=== PATIENT | male | born 1995 | race Caucasian/White ===

== ENCOUNTER 2017-04-24 15:13 | Emergency (ER) | payer OTHER ==
[2017-04-24 15:38] LABS: WBC (NOT ORDERED) (RFLEX) 0 (0-5)
[2017-04-24 15:57] LABS: ASCORBIC ACID (UR NOT ORDER) NEG (NEG); BILIRUBIN, URINE NEGATIVE (NEG); ER URINALYSIS TAT 0 Hrs 19 Mins; KETONE, URINE NEGATIVE (NEG); LEUKOCYTE ESTERASE(NOT OR NEG (NEG); NITRITE (URINE) NEG (NEG)
[2017-04-24 16:08] LABS: A/G RATIO 1.2 (0.7-1.9); ALBUMIN 4.1 G/DL (3.5-5.0); ALKALINE PHOSPHATASE 54 U/L (45-117); BUN (BLOOD UREA NITROGEN) 12 MG/DL (6-23); CALCIUM, SERUM 9.5 MG/DL (8.5-10.4); CHLORIDE, SERUM 105 MMOL/L (96-112); CO2 (CARBON DIOXIDE) 28 MMOL/L (24-34); GFR AFRICAN AMERICAN 90 ML/MIN (>=60); GFR NON AFRICAN AMERICAN 78 ML/MIN (>=60); GLOBULIN 3.5 G/DL (2.5-4.1); GLUCOSE, SERUM 124 MG/DL (60-99); POTASSIUM, SERUM 3.4 MMOL/L (3.5-5.3); SGOT(AST) 16 U/L (5-40); SGPT(ALT) 36 U/L (5-65); SODIUM, SERUM 139 MMOL/L (135-148); TOTAL BILIRUBIN 0.5 MG/DL (0-1.2); TOTAL PROTEIN 7.6 G/DL (6.0-8.5)
[2017-04-24 16:27] LABS: BASOPHILS 0.1 %; BASOPHILS ABSOLUTE 0.01 10/3/uL (0.0-0.16); EOSINOPHILS 0.4 %; EOSINOPHILS ABSOLUTE 0.04 10/3/uL (0.0-0.53); HEMATOCRIT 43.8 % (40.0-51.0); IMMATURE GRANULOCYTES 0.3 %; IMMATURE GRANULOCYTES ABSOLUTE 0.03 10/3/uL (0.0-0.11); LYMPHOCYTES 32.7 %; LYMPHOCYTES ABSOLUTE 2.99 10/3/uL (0.67-4.30); MEAN CORPUS HGB CONC 36.5 g/dL (32.0-36.0); MEAN CORPUSCULAR HEMOGLOB 30.1 pg (26.0-34.0); MEAN CORPUSCULAR VOLUME 82.3 fL (80-100); MEAN PLATELET VOLUME 10.1 fL (9.2-13.0); MONOCYTES 8.2 %; MONOCYTES ABSOLUTE 0.75 10/3/uL (0.21-1.20); NEUTROPHILS 58.3 %; NEUTROPHILS ABSOLUTE 5.32 10/3/uL (2.02-8.40); PLATELET COUNT 211 10/3/uL (150-400); RED CELL COUNT 5.32 10/6/uL (4.7-6.1); WHITE BLOOD CELLS 9.1 10/3/uL (4.5-10.5)
[2017-04-24 16:28] LABS: ER CBC TAT 0 Hrs 41 Mins; MANUAL DIFF NO %
== END 2017-04-24 17:53 | disposition home or self-care (01) ==
LOC: ER 15:13
PROVIDERS: Nurse Practitioner
DX: N13.2 Hydronephrosis with renal and ureteral calculous obstruction (principal)
CPT/HCPCS: 74176; 80053; 81001; 83690; 85025; 96374; 96375; 96376; 99284; J1170; J1885; J2405